=== PATIENT | female | born 1985 | race American Indian/Alaskan Native ===

== ENCOUNTER 2018-08-04 07:01 | Day surgery (SDC) | payer MEDICAID, OTHER ==
--- NOTE | 2018-07-31 12:38 | Anesthesia Consultation ---
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 h/o chest pain. EKG-pending
[2018-07-31 12:41] LABS: Basophils % (Auto) 0.2 % (0.0-1.8); Eosinophils # (Auto) 0.1 K/mm3 (0.0-0.4); Eosinophils % (Auto) 1.1 % (0.0-4.3); Hematocrit 35.5 % (30.3-42.9); Hemoglobin 11.8 gm/dl (10.1-14.3); Lymphocytes # (Auto) 2.2 K/mm3 (1.2-5.4); Lymphocytes % (Auto) 33.5 % (13.4-35.0); Mean Corpuscular HGB Conc 33 % (30-34); Mean Corpuscular Hemoglobin 26 pg (28-32); Mean Corpuscular Volume 79 fl (79-97); Monocytes # (Auto) 0.4 K/mm3 (0.0-0.8); Monocytes % (Auto) 6.1 % (0.0-7.3); Platelet Count 316 K/mm3 (140-440); Red Blood Count 4.51 M/mm3 (3.65-5.03); Red Cell Distribution Width 14.3 % (13.2-15.2)
[2018-07-31 12:52] LABS: BUN/Creatinine Ratio 25; Blood Urea Nitrogen 15 mg/dL (7-17); Calcium 9.2 mg/dL (8.4-10.2); Hemolysis Index 18
[2018-08-04] MEDS ORDERED: DILAUDID ONE (07:56)
[2018-08-04] MEDS ORDERED: XYLOCAINE MPF 2% ONE (07:56)
[2018-08-04] MEDS ORDERED: DIPRIVAN 10 MG/ML IV ONE (07:56)
[2018-08-04] MEDS ORDERED: LACTATED RINGERS 1,000 ML IV SCH (08:00)
[2018-08-04] MEDS ORDERED: ANCEF/STERILE WATER 2 GM/20 ML 2 GM/20 ML SYRINGE IV NR (08:00)
--- NOTE | 2018-08-04 08:14 | Short Stay Summary ---
Short Stay Documentation Date of service: 08/04/18 Narrative H&P: Patient is a 33-year-old black female LMP 07/25/2018 who presents for surgical evaluation and treatment of endometrial polyp. Pelvic ultrasound showed an enlarged uterus measuring 9.4 x 7 x 6.4 cm with an endometrial polyp. Patient complains of prolonged heavy vaginal bleeding, and is now scheduled for a hysteroscopy with polypectomy. - History Principal diagnosis: Endometrial polyp H&P: obtained from office Past Medical History: diabetes Past Surgical History: , Other (LEEP) Social history: no significant social history, single - Allergies and Medications Current Medications: Allergies shrimp Allergy (Unverified 07/29/18 15:14) Swelling Home Medications Medication Instructions Recorded Confirmed Last Taken Type Insulin Glargine,Hum.rec.anlog 30 unit SQ QAM 07/29/18 07/29/18 Unknown History [Basaglar Kwikpen U-100] Active Medications Cefazolin Sodium (Ancef/Sterile Water 2 Gm/20 Ml) 2 gm in 20 mls @ 80 mls/hr IV PREOP NR; Protocol Stop: 08/04/18 20:00 Lactated Ringer's (Lactated Ringers) 1,000 mls @ 125 mls/hr IV DIRECT JOY - Physical exam General appearance: no acute distress Integumentary: no rash HEENT: Atraumatic Lungs: Clear to auscultation Breasts: deferred Heart: Regular rate Gastrointestinal: normal Female Genitourinary: deferred Rectal Exam: deferred Extremities: no ischemia, No edema Neurological: Normal gait, Normal speech - Brief post op/procedure progress note Date of procedure: 08/04/18 Pre-op diagnosis: Endometrial polyps Post-op diagnosis: same Procedure: 1. Hysteroscopy 2. Endometrial polypectomy Anesthesia: MAC Findings: An 8-10 week size uterus with 2 endometrial polyps removed by polypectomy using the Myosure device. Surgeon: CHARLI BOYD Estimated blood loss: minimal Pathology: list (endometrial polyps) Specimen disposition: to lab Condition: stable - Hospital course Hospital course: Unremarkable - Disposition Condition at discharge: Good Disposition: DC-01 TO HOME OR SELFCARE - Discharge Diagnoses (1) Endometrial polyp Status: Resolved Short Stay Discharge Plan Activity: no restrictions Diet: regular Follow up with: TSERING FERGUSON MD [Primary Care Provider] - 7 Days CHARLI BOYD MD [Staff Physician] - 14 Days Prescriptions: Ibuprofen [Motrin] 800 mg PO Q8HR PRN #30 tablet PRN Reason: Pain, Moderate (4-6)
[2018-08-04] MEDS ORDERED: SUBLIMAZE IV PRN (08:30)
--- NOTE | 2018-08-04 08:30 | Anesthesia Day of Surgery ---
Anesthesia Day of Surgery - Day of Surgery Patient Examined: Yes Patient H&P Reviewed: Yes Patient is NPO: Yes
[2018-08-04] MEDS ORDERED: TORADOL ONE ×2 (08:47→10:13)
[2018-08-04] MEDS ORDERED: VERSED IV NR (09:00)
[2018-08-04] MEDS ORDERED: NORMODYNE IV ONE (09:06)
[2018-08-04] MEDS ORDERED: NACL 0.9% IR ONE ×2 (09:10)
--- NOTE | 2018-08-04 09:49 | Operative Report ---
Operative Report Operative Report: Date of procedure: 08/04/2018 Pre-operative diagnosis: Endometrial polyp Post-operative diagnosis: Same Procedure name(s): 1. Hysteroscopy 2. Endometrial polypectomy Surgeon: Darin Carrillo MD Dairy Equipment Installer: None Anesthesia: Gen. mask EBL: 10 mL's Findings: An 8-10 week size uterus with 2 endometrial polyps removed by polypectomy using the Myosure device Procedure: After the patient was correctly identified, she was prepped and draped in usual sterile fashion and placed in dorsolithotomy position. Next the specimen was placed in the vaginal vault and the anterior lip of the cervix was grasped using single-tooth tenaculum. The uterus was sounded to 10 cm, and the cervical os was sequentially dilated. The hysteroscope was then introduced into the cervical canal revealing 2 endometrial polyps. The Myosure device was also introduced, and used to remove 2 polyps which were sent to pathology. At this point the procedure was considered complete. All instruments removed from the vagina. The patient tolerated the procedure well and was transported to recovery room in stable condition.
[2018-08-04 09:57] VITALS: BP 148/94
--- NOTE | 2018-08-04 10:18 | Post Anesthesia Evaluation ---
- Post Anesthesia Evaluation Patient Participated: Yes Airway Patent: Yes Stable Respiratory Function: Yes Nausea/Vomiting: No Temp > 96.8F: Yes Pain Manageable: Yes Adequeate Hydration: Yes Anesthesia Complications: No
[2018-08-04] MEDS ORDERED: ROBINUL ONE (10:24)
[2018-08-04] MEDS ORDERED: BLOXIVERZ ONE (10:24)
== END 2018-08-04 10:45 | disposition home or self-care (01) ==
LOC: OR 07:01
PROVIDERS: ATTEND Obstetrics & Gynecology
DX: N84.0 Polyp of corpus uteri (principal); K21.9 Gastro-esophageal reflux disease without esophagitis; E11.9 Type 2 diabetes mellitus without complications; M17.9 Osteoarthritis of knee, unspecified; G43.909 Migraine, unspecified, not intractable, without status migrainosus; Z88.8 Allergy status to other drugs, medicaments and biological substances; Z79.4 Long term (current) use of insulin; Z98.891 History of uterine scar from previous surgery; Z98.890 Other specified postprocedural states; Z79.899 Other long term (current) drug therapy; Z86.73 Personal history of transient ischemic attack (TIA), and cerebral infarction without residual deficits
CPT/HCPCS: 36415; 58558; 80048; 82962; 84703; 85025; 88305; 93005; 93010; A4217; C1782; J0690; J1170; J1885; J2250; J2704; J7120; J2710